=== PATIENT | female | born 1945 | race Caucasian/White ===

== ENCOUNTER → 2025-01-06 09:49 | Outpatient (REF) | payer OTHER, MEDICARE, SELFPAY | LOC: HWRAD 09:49 | PROVIDERS: ATTENDING PHYSICIAN Internal Medicine Cardiovascular Disease; FAMILY PHYSICIAN Family Medicine | DX: I65.23 Occlusion and stenosis of bilateral carotid arteries (principal) | CPT/HCPCS: 93880 ==